=== PATIENT | female | born 1990 | race Caucasian/White ===

== ENCOUNTER 2025-01-03 09:58 | Inpatient (IN) ==
[2025-01-03 10:41] LABS: Hematocrit (blood only) 42.9 % (37.0-47.0); Hemoglobin 14.6 g/dL (12.0-16.0); Immature Granulocytes # (auto) 0.00 K/uL (0.01-0.20); Immature Granulocytes % (auto) 0.0 %; Mean Corpuscular Hemoglobin 31.1 pg (25.0-34.0); Mean Corpuscular Volume 91.5 fL (80.0-100.0); Platelet Count 227 K/uL (130-400); RDW Standard Deviation 41.5 fL (36.4-46.3); Red Blood Count 4.69 M/uL (4.20-5.40); White Blood Count 4.61 K/ul (4.8-10.8)
[2025-01-03 10:57] LABS: Alanine Aminotransferase 9.0 U/L (7-52); Albumin Globulin Ratio 1.8 (0.9-2); Albumin Level 4.9 gm/dl (3.4-5.0); Alkaline Phosphatase 52.0 U/L (34-104); Anion Gap 7.0 (3-11); Bilirubin,Total 0.7 mg/dl (0.2-1.0); Blood Urea Nitrogen 10.0 mg/dl (6-23); Calcium 9.5 mg/dl (8.6-10.3); Carbon Dioxide 28.0 mmol/L (21-32); Chloride 104.0 mmol/L (98-107); Creatinine Clr Calc Pharmacy 81.0 ml/min; Globulin 2.7 gm/dl (2.5-4.0); Glucose 89.0 mg/dl (70-99(Fasting)); Potassium 3.6 mmol/L (3.5-5.1); Sodium 139.0 mmol/L (136-145); Total Protein 7.6 gm/dl (6.0-8.3)
[2025-01-03 11:01] LABS: Acetaminophen < 3 ug/ml (10-30); Salicylate < 3.0 mg/dl (3.0-30)
[2025-01-03 11:12] LABS: Thyroid Stimulating Hormone 1.473 uIu/ml (0.300-4.500)
[2025-01-03 11:20] LABS: Appearance Urine Clear (Clear); Bacteria Urine Automated 1+ (None Seen); Cast Urine Automated 0-2 /lpf (0-2); Glucose Urine UA Negative (Negative); Pregnancy Test, Serum Negative (Negative); RBC Urine Automated 0-2 /hpf (0-2); WBC Urine Automated 0-5 /hpf (0-5)
[2025-01-03] MEDS: ONDANSETRON 4 MG OD TAB PO STA (11:34)
[2025-01-03 11:51] LABS: Amphetamines+Metham, Urine Neg (Neg); MDMA (Ecstacy), Urine Neg (Neg); Marijuana, Urine Neg (Neg)
--- NOTE | 2025-01-03 12:48 | Emergency Department Note ---
Impression & Plan Suicidal ideation, Depression ED Provider Note NAME: HEIDI PUENTE AGE: 34 SEX: F : 1990 ARRIVES VIA: Walk-In INFORMANT: Patient ED PROVIDER(S): Babatunde Mesa MD CHIEF COMPLAINT: Depression and suicidal ideation. PLAN: Disposition: Inpatient psychiatric treatment MEDICAL DECISION MAKING: The patient is a pleasant 34-year-old woman with past medical history of anxiety/depression who presents to the emergency department via walk-in for evaluation of worsening depression with associated suicidal ideation. Patient denies having a particular plan but felt numerous stressors piling on and did not wanted to get worse. Patient denies auditory hallucinations. She denies prior psychiatric admissions. She denies any recent illness. On my evaluation the patient is medically appearing but no acute distress, afebrile with stable vital signs. She exhibits a flat affect. She reports severe depression and suicidal ideation without plan. WBC 4.6 K, nonspecific. H/H and platelets within normal limits. Chemistry without metabolic acidosis. Electrolytes and LFTs unremarkable. TSH with normal limits. hCG negative. UA without convincing evidence of infection as 1+ bacteria is present with epithelial cells and no WBCs or nitrites. Patient denies urinary symptoms. Medical alcohol is undetectable. Urine drug screen was positive for benzodiazepines. Appreciate case management assistance/consultation who did complete mental health evaluation and patient is interested and willing to proceed with voluntary inpatient psychiatric treatment. Patient accepted to 3 S. under a 201. Triage Nursing notes reviewed and agree them. Prior/external medical records reviewed Vital Signs: reviewed Differential diagnosis: Mood disorder, infection, hypoglycemia, electrolyte abnormalities, cardiac sources, intracerebral event, toxicologic, trauma, neurologic, as well as other pathologies. ER treatment provided: See below. Laboratory studies: See below Imaging studies: See below Consultation(s): Case management HPI: Per MDM. ROS: See above HPI for pertinent positives & negatives. A total of 10 systems reviewed and were otherwise negative. VITALS:See Below PHYSICAL EXAMINATION: GENERAL: Awake, alert, melancholy-appearing, in no distress HENT: Normocephalic, atraumatic. Oropharynx unremarkable. EYES: Normal conjunctiva. Sclera non-icteric. NECK: Supple. No nuchal rigidity. FROM. No JVD. RESPIRATORY: Clear to auscultation. CARDIAC: Regular rate, normal rhythm. Extremities warm and well perfused. Pulses equal. ABDOMEN: Soft, non-distended. No tenderness to palpation. No rebound or guarding. No masses. MUSCULOSKELETAL: Chest examination reveals no tenderness. The back is symmetrical on inspection without obvious abnormality. There is no CVA tenderness to palpation. No joint edema. LOWER EXTREMITIES: Calves are equal size bilaterally and non-tender. No edema. No discoloration. NEURO: Normal sensorium. No sensory or motor deficits noted. SKIN: No rash or jaundice noted. PSYCH: Flat affect. Reports severe depression, suicidal ration without plan. Denies auditory hallucinations Babatunde Mesa MD Past Med/Surg History Problem List Depression (Acute) Suicidal ideation (Acute) S/P tubal ligation Medical History History of palpitations Follows with Dr. Mcgarry ([facility] Cardio) Anxiety and depression Surgical History Nausea and vomiting after administration of anesthetic agent S/P hardware removal rt ankle History of ankle surgery Right ankle bone wedge resection, w/screw placement History of hip surgery rt hip, screw placed through growth plate S/P correction of deviated nasal septum H/O wisdom tooth extraction H/O excision of dermoid cyst Family History Denies family history of Ovarian cancer Breast cancer Colorectal cancer Social History Smoking Status: Never smoker Second Hand Exposure: Yes (hx); Do You Dip or Chew Tobacco: No; Hx Alcohol Use: Yes Hx Substance Use: Yes Last Used Substance Other:: years ago Preferred Language: Malay Communication Ability: Effective 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 Beliefs That Will Affect Care: None marital status: Single Current Living Situation: Parent current occupational status: employed current occupation: [employer] How many Children do You have: 0 Feels Safe at Home: Yes Gender Identity: Female Assistive Devices: Glasses Allergies Allergies Allergy/AdvReac Type Severity Reaction Status Date / Time No Known Drug Allergies Allergy Verified 01/03/25 10:25 nickel AdvReac Skin Verified 01/03/25 10:25 itching ("with cheap earrings") Home Meds Home Medications Medication Instructions Recorded Confirmed escitalopram oxalate 20 mg tablet 20 mg PO HS 03/27/24 01/03/25 levocetirizine 5 mg tablet 5 mg PO HS 03/30/24 01/03/25 alprazolam 0.25 mg tablet (Xanax) 0.25 mg PO DIRECTED PRN Anxiety 01/03/25 01/03/25 Previous Rx's Medication Instructions Recorded valacyclovir 500 mg tablet 500 mg PO DAILY #30 tabs 10/01/24 (Valtrex) Results & Data (ED) Vital Signs Vital Signs - 24 hr 01/03/25 10:04 01/03/25 12:55 01/03/25 14:42 Temperature 37.0 C Temperature Source Temporal Artery Scan Pulse Rate 114 H Pulse Rate [Finger] 81 86 Pulse Rhythm [Finger] Regular Regular Pulse Strength [Finger] Normal Normal Respiratory Rate 18 20 20 Respiratory Effort / Characteristics Non-Labored Respiratory Depth Normal Normal Respiratory Pattern Regular Regular Blood Pressure 123/83 Blood Pressure [Right Radial Artery] 112/78 118/81 Blood Pressure Mean 96 Blood Pressure Mean [Right Radial Artery] 89 93 Blood Pressure Position [Right Radial Artery] Sitting Sitting Pulse Oximetry 97 99 99 Oxygen Delivery Method Room Air Room Air Room Air Sepsis Recent Fever Within 48 Hours No Sepsis New/Unexplained Change in Mental Status N/A Sepsis Action Taken by Nursing No Action Required Laboratory Data Attestation: I reviewed the patient's lab results. 01/03/25 10:24 01/03/25 10:24 Lab Results 01/03/25 01/03/25 Range/Units 10:24 13:32 WBC 4.61 L (4.8-10.8) K/ul RBC 4.69 (4.20-5.40) M/uL Hgb 14.6 (12.0-16.0) g/dL Hct 42.9 (37.0-47.0) % MCV 91.5 (80.0-100.0) fL MCH 31.1 (25.0-34.0) pg MCHC 34.0 (32.0-36.0) g/dL RDW Std Deviation 41.5 (36.4-46.3) fL RDW Coeff of Karson 12.6 (11.5-14.5) % Plt Count 227 (130-400) K/uL MPV 10.6 (9.4-12.4) fL Immature Gran % (Auto) 0.0 % Neut % (Auto) 56.8 % Lymph % (Auto) 32.8 % [place] % (Auto) 7.6 % Eos % (Auto) 1.7 % Baso % (Auto) 1.1 % Neut # (Auto) 2.62 (1.40-6.50) K/uL Lymph # (Auto) 1.51 (1.20-3.40) K/uL [place] # (Auto) 0.35 (0.11-0.59) K/uL Eos # (Auto) 0.08 (0.00-0.50) K/uL Baso # (Auto) 0.05 (0.00-0.20) K/uL Immature Gran # (Auto) 0.00 L (0.01-0.20) K/uL Sodium 139 (136-145) mmol/L Potassium 3.6 (3.5-5.1) mmol/L Chloride 104 (98-107) mmol/L Carbon Dioxide 28 (21-32) mmol/L Anion Gap 7 (3-11) BUN 10 (6-23) mg/dl Creatinine 0.71 (0.6-1.2) mg/dl Est Cr Clr Drug Dosing 81.0 ml/min eGFR 115.06 BUN/Creatinine Ratio 14.1 (10-20) Glucose 89 (70-99(Fasting)) mg/dl Calcium 9.5 (8.6-10.3) mg/dl Total Bilirubin 0.7 (0.2-1.0) mg/dl AST 15 (13-39) U/L ALT 9 (7-52) U/L Alkaline Phosphatase 52 (34-104) U/L Total Protein 7.6 (6.0-8.3) gm/dl Albumin 4.9 (3.4-5.0) gm/dl Globulin 2.7 (2.5-4.0) gm/dl Albumin/Globulin Ratio 1.8 (0.9-2) TSH 1.473 (0.300-4.500) uIu/ml HCG, Qual Negative (Negative) Urine Color Dark Yellow Urine Appearance Clear (Clear) Urine pH 6.5 (4.5-7.5) Ur Specific [place] 1.029 (1.000-1.030) Urine Protein Trace H (Negative) Urine Glucose (UA) Negative (Negative) Urine Ketones 1+ H (Negative) Urine Blood Negative (Negative) Urine Nitrite Negative (Negative) Urine Bilirubin Negative (Negative) Urine Urobilinogen Negative (Negative) Ur Leukocyte Esterase Negative (Negative) Urine WBC (Auto) 0-5 (0-5) /hpf Urine RBC (Auto) 0-2 (0-2) /hpf U Hyaline Cast (Auto) 0-2 (0-2) /lpf U Epithel Cells (Auto) 6-10 H (0-2) /hpf Urine Bacteria (Auto) 1+ H (None Seen) Urine Comment Salicylates < 3.0 L (3.0-30) mg/dl Urine Opiates Screen Neg (Neg) Ur Methadone, Qual Neg (Neg) Urine Fentanyl Screen Neg (Neg) Acetaminophen < 3 L (10-30) ug/ml Urine Barbiturates Neg (Neg) Ur Phencyclidine (PCP) Neg (Neg) U Amphetamin/Meth Scrn Neg (Neg) MDMA (Ecstasy) Screen Neg (Neg) U Benzodiazepines Scrn Pos H (Neg) Ur Cocaine Metabolite Neg (Neg) U Marijuana (THC) Screen Neg (Neg) Ethyl Alcohol mg/dL < 10.0 (<10.0) mg/dl SARS-CoV-2, RNA, NAAT NEGATIVE (NEGATIVE) Administered Medications Alprazolam (Alprazolam 0.25 Mg Tablet) 0.25 mg PO DAILY PRN PRN Reason: Anxiety Stop: 02/02/25 16:06 Last Admin: 01/03/25 22:16 Dose: 0.25 mg Documented By: bep Discontinued Medications Ondansetron HCl (Ondansetron 4 Mg Od Tab) 4 mg PO NOW STA Stop: 01/03/25 11:31 Last Admin: 01/03/25 11:34 Dose: 4 mg Documented By: ML Discharge Plan Visit Data Chief Complaint: Mental Health Evaluation Stated Complaint: SUICIDAL THOUGHTS ED Provider: Babatunde Mesa Discharge Problem: Suicidal ideation, Depression Patient Disposition: Admitted As Inpatient Condition: Fair Discharge Instructions Interventions: ED Discharge Assessment Last Done: 01/03/25 15:07 Discharge Problem: Depression Qualifiers: Depression Type: unspecified Qualified Code(s): F32.A - Depression, unspecified
[2025-01-03] MEDS ORDERED: MAGNESIUM HYDROXIDE SUSP 30 ML UDC PO PRN (14:46)
[2025-01-03] MEDS ORDERED: SODIUM CHLORIDE 0.65% NA SOLN 45 ML (OCEAN) PRN (14:46)
[2025-01-03] MEDS ORDERED: ALUMINUM/MAGNESIUM SUSP 30 ML UDC PO PRN (14:46)
[2025-01-03] MEDS ORDERED: BISMUTH SUBSALICYLATE 262 MG CHEW PO PRN (14:46)
[2025-01-03] MEDS ORDERED: ACETAMINOPHEN 325 MG TAB PO PRN (14:46)
[2025-01-03 16:06] VITALS: O2SAT 98
[2025-01-04 07:43] LABS: Iron 79.0 mcg/dl (35-150); Transferrin 283.0 mg/dl (200-360)
[2025-01-04 08:02] LABS: Ferritin 16.7 ng/ml (8-388)
[2025-01-04 08:14] LABS: Folate (Folic Acid),Ser orPlas 19.8 ng/ml (>5.38)
[2025-01-04 08:15] LABS: Vitamin B12 447.0 pg/ml (180-914)
[2025-01-04] MEDS: ESCITALOPRAM OXALATE 20 MG TAB PO SCH (08:18)
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
[2025-01-04] MEDS: ONDANSETRON 4 MG OD TAB PO PRN (10:00)
[2025-01-04] MEDS: LITHIUM CARBONATE 300 MG TAB PO SCH (22:19)
--- NOTE | 2025-01-05 10:15 | Psychiatric Progress Note ---
Date of Service January 05, 2025 Impression / Recommendations Impression Patient presents with symptoms of depression and anxiety in the context of recent mood deterioration and increased life stressors. She describes a long history of mood fluctuations, impulsivity, and racing thoughts. Patient has a brother with a diagnosis of bipolar disorder. In the past her impulsivity had been attributed to ADHD. She also has history of intrusive obsessive thoughts but no compulsions or ritualistic behaviors. She denied a history of eating disorders. She is in good physical condition and general health is stable. Patient agreed to explore more in-depth her symptoms in order to clarify the diagnosis. There is high suspicion of bipolar spectrum disorder. Patient has been on Lexapro for many years at the maximum dose and is open to medication changes. Tolerated lithium plus Lexapro well. Further medication adjustments will be conducted tomorrow. Overall, I spent a total of 35 minutes with this case, including review of chart, direct evaluation of the patient,counseling the patient,coordination with nursing,interdisciplinary team meeting,risk assessment, interpretation of self- assessment tools, and documentation. (1) Suicidal ideation: Passive suicidal ideation on admission. Denies suicidal ideation at the time of this evaluation, however will continue suicide precautions due to severe depression and mood instability. (2) Depression: Plan 01/05/25 Add magnesium 400 mg p.o. nightly for insomnia Continue lithium 150 mg p.o. nightly. Will attempt an increase tomorrow. Continue participation in unit programming continue suicide precautions 01/04/25: The patient was admitted to the [facility] ([facility]) on q15 min checks (behavioral with suicide precautions) for safety. The patient will participate in group, recreational, and milieu therapies and will be offered additional individual and family sessions as clinically appropriate. Patient to complete PHQ-9, PREMA-7, Audit, MDQ, and ASRS. -Will discuss medication options after we obtain results of the self-assessment. In the meantime patient will continue Lexapro. -Zofran has been ordered as needed for nausea -EKG ordered For medication monitoring due to increased risk of QT elevation with a combination of Zofran and Lexapro Suicide Risk Level Suicide Risk Level: Moderate (q15 min suicide checks) Risk Factors Assessment Do You Have Access To A Gun?: Yes Protective Factors Assessment Employed: Yes Interval History Identifying Information HEIDI PUENTE is a 34-year-old F who currently lives with her parents, has a history of depression and anxiety, and was admitted on 01/03/25 14:46 on a 201 voluntary due to worsening of anxiety and depression with suicidal ideation. Chief Complaint "I took the medication, nothing bad. Just did not sleep well. I do not think that was the medication." Review of Systems Sleep Information Total Hours of Sleep: 8 Meal Information Percent Meal Consumed - Breakfast: 75 Percent Meal Consumed - Lunch: 90 Percent Meal Consumed - Dinner: 80 Subjective Subjective Patient was seen & assessed and interval progress reviewed with nursing and social work. According to staff patient complained of difficulty sleeping due to restless legs. This morning she was out of her room early showered, and rated her mood at 5 out of 10. Patient told staff that she was feeling "focused" she was observed crying on the phone does not clear who she was speaking with. Patient denied suicidal ideation. Nausea has persisted. Patient evaluated in the group room by herself. She was writing some ideas to work through her stressors with the therapist. Patient denied side effects from initial dose of lithium and is agreeable to continue the medication. She had agreed to adding magnesium to help with sleep. We discussed continuing lithium at the current dose for a couple more days before it is increased. On exam there is no evidence of involuntary movements. Patient expressed interest in learning more about bipolar disorder. Physical Exam Mental Examination Appearance: Well Groomed Eye Contact: Maintains Eye Contact Motor Behavior: Unremarkable Speech: Soft Mood: Depressed (Not tearful today) and Anxious Affect: Anxious and Sad Thought Process: Intact Insight: Fair Judgement: Fair Vital Signs (Past 24 Hours) Last Vital Signs Temp 36.7 C 01/05/25 06:00 Pulse 61 01/05/25 06:13 Resp 16 01/05/25 06:00 BP 113/74 01/05/25 06:13 Pulse Ox 98 01/03/25 15:45 O2 Del Method Room Air 01/03/25 15:45 Results & Data ([facility] [[email or web address] Current Inpatient Medications Current Inpatient Medications: Current Inpatient Medications Acetaminophen (Acetaminophen 325 Mg Tab) 650 mg PO Q4H PRN PRN Reason: Headache or Minor Fever Stop: 02/02/25 14:45 Al Hydrox/Mg Hydrox/Simethicone (Aluminum/Magnesium Susp 30 Ml Udc) 30 ml PO Q4H PRN PRN Reason: GI Upset Stop: 02/02/25 14:45 Alprazolam (Alprazolam 0.25 Mg Tablet) 0.25 mg PO DAILY PRN PRN Reason: Anxiety Stop: 02/02/25 16:06 Last Admin: 01/03/25 22:16 Dose: 0.25 mg Bismuth Subsalicylate (Bismuth Subsalicylate 262 Mg Chew) 2 tab PO Q30M PRN PRN Reason: Loose Stool/Diarrhea Stop: 02/02/25 14:45 Escitalopram Oxalate (Escitalopram Oxalate 20 Mg Tab) 20 mg PO QAM PATTI Stop: 02/03/25 08:59 Last Admin: 01/05/25 08:33 Dose: 20 mg Hydroxyzine HCl (Hydroxyzine Hcl 25 Mg Tab) 50 mg PO HSZ PRN PRN Reason: Insomnia Stop: 02/02/25 14:45 Last Admin: 01/05/25 00:05 Dose: 50 mg Hydroxyzine HCl (Hydroxyzine Hcl 25 Mg Tab) 25 mg PO Q4H PRN PRN Reason: Anxiety Stop: 02/02/25 14:45 [place] Carbonate ([place] Carbonate 300 Mg Tab) 150 mg PO HS@2200 PATTI Stop: 02/03/25 21:59 Last Admin: 01/04/25 22:19 Dose: 150 mg Magnesium Hydroxide (Magnesium Hydroxide Susp 30 Ml Udc) 30 ml PO DAILY PRN PRN Reason: Constipation Stop: 02/02/25 14:45 Ondansetron HCl (Ondansetron 4 Mg Od Tab) 4 mg PO Q8H PRN PRN Reason: Nausea And Vomiting Stop: 02/03/25 09:13 Last Admin: 01/04/25 10:00 Dose: 4 mg Sodium Chloride (Sodium Chloride 0.65% Na Soln 45 Ml ([place])) 1 - 2 sprays NA PRN PRN PRN Reason: Nasal Dryness/Congestion Stop: 02/02/25 14:45 Mental Health & Subst Abuse Tx Therapist Name of Therapist: [facility]. Cornice Upholsterer Name of Cornice Upholsterer: n/a Post Discharge Appointments Primary Care Physician Name Of Family Doctor/PCP: Debra Gonzalez (2) Depression Depression Type: unspecified Qualified Code(s): F32.A - Depression, unspecified
[2025-01-05] MEDS: MAGNESIUM OXIDE 400 MG TAB PO SCH (21:11)
--- NOTE | 2025-01-06 09:55 | Psychiatric Progress Note ---
Date of Service January 06, 2025 Impression / Recommendations Impression Patient presents with symptoms of depression and anxiety in the context of recent mood deterioration and increased life stressors. She describes a long history of mood fluctuations, impulsivity, and racing thoughts. Patient has a brother with a diagnosis of bipolar disorder. In the past her impulsivity had been attributed to ADHD. She also has history of intrusive obsessive thoughts but no compulsions or ritualistic behaviors. She denied a history of eating disorders. She is in good physical condition and general health is stable. Patient agreed to explore more in-depth her symptoms in order to clarify the diagnosis. There is high suspicion of bipolar spectrum disorder. Patient has been on Lexapro for many years at the maximum dose and is open to medication changes. We discussed what to expect with a higher dose of lithium and also reiterated side effects and medications contraindicated when using lithium (including NSAIDs, lisinopril,hydrochlorothiazide). We discussed need to maintain good hydration. And to monitor for tremors and or side effects. Patient also educated about the need to get labs including monitoring kidney, thyroid, and blood lithium level FMLA document signed. Overall, I spent a total of 35 minutes with this case, including review of chart, direct evaluation of the patient,counseling the patient,coordination with nursing,interdisciplinary team meeting,risk assessment, interpretation of self- assessment tools, and documentation. (1) Suicidal ideation: (2) Depression: Plan 01/06/25 Increase [place] to 300mg po qhs lower Lexapro to 15 mg po daily Continue rest of medications without changes. Will discontinue PRN hydroxyzine if able to sleep with higher lithium dose FMLA documents signed 01/05/25 Add magnesium 400 mg p.o. nightly for insomnia Continue lithium 150 mg p.o. nightly. Will attempt an increase tomorrow. Continue participation in unit programming continue suicide precautions 01/04/25: The patient was admitted to the [facility] ([facility] unit) on q15 min checks (behavioral with suicide precautions) for safety. The patient will participate in group, recreational, and milieu therapies and will be offered additional individual and family sessions as clinically appropriate. Patient to complete PHQ-9, PREMA-7, Audit, MDQ, and ASRS. -Will discuss medication options after we obtain results of the self-assessment. In the meantime patient will continue Lexapro. -Zofran has been ordered as needed for nausea -EKG ordered For medication monitoring due to increased risk of QT elevation with a combination of Zofran and Lexapro Suicide Risk Level Suicide Risk Level: Moderate (q15 min suicide checks) Risk Factors Assessment Do You Have Access To A Gun?: Yes Protective Factors Assessment Employed: Yes Interval History Identifying Information HEIDI PUENTE is a 34-year-old F who currently lives with her parents, has a history of depression and anxiety, and was admitted on 01/03/25 14:46 on a 201 voluntary due to worsening of anxiety and depression with suicidal ideation. Chief Complaint "I did sleep well. I feel the speed of my thoguhts is not as bad but I woke up feeling withdrawn and nubia bumped.". Review of Systems Sleep Information Total Hours of Sleep: 6 Meal Information Percent Meal Consumed - Breakfast: 50 Percent Meal Consumed - Lunch: 95 Percent Meal Consumed - Dinner: 95 Subjective Subjective Patient was seen & assessed and interval progress reviewed with treatment team.. Support meeting is scheduled for tomorrow. She had a positive day yesterday. Patient reported no side effects after starting lithium 150. She indicated that her thoughts feel clear. However mood is not improved, in fact she feels "bumped" and expressed feeling surprised since yesterday her mood was better.Patient agreed to increase the dose of lithium. We discussed lowering Lexapro slightly due to concerns about serotonin syndrome and drug-drug interactions. Patient agreed with this plan. Patient indicated that she was not able to sleep well despite receiving the magnesium but agreed to continue the supplement. According to staff patient has difficulty sleeping due to restless legs Physical Exam Mental Examination Appearance: Well Groomed Eye Contact: Maintains Eye Contact Motor Behavior: Unremarkable Speech: Soft Mood: Depressed Affect: Sad Thought Process: Intact Insight: Good Judgement: Good Psychiatric Orientation: alert and oriented x 3 Apperance: appropriately dressed Eye Contact: good eye contact Motor Behavior: steady gait and station Thought Process: goal directed thought process Thought Content: reality based without delusions Suicidal Thoughts: denies suicidal thoughts Homicidal Thoughts: denies homicidal thoughts Hallucinations: no auditory hallucinations Cognition: recent memory grossly intact and remote memory grossly intact Estimated Intelligence: average estimated intelligence Insight: good insight Judgment: good judgement Vital Signs (Past 24 Hours) Last Vital Signs Temp 36.7 C 01/06/25 06:45 Pulse 73 01/06/25 06:45 Resp 20 01/06/25 06:45 BP 102/64 01/06/25 06:45 Pulse Ox 98 01/06/25 06:45 O2 Del Method Room Air 01/06/25 06:45 Results & Data ([facility]) Current Inpatient Medications Current Inpatient Medications: Current Inpatient Medications Acetaminophen (Acetaminophen 325 Mg Tab) 650 mg PO Q4H PRN PRN Reason: Headache or Minor Fever Stop: 02/02/25 14:45 Al Hydrox/Mg Hydrox/Simethicone (Aluminum/Magnesium Susp 30 Ml Udc) 30 ml PO Q4H PRN PRN Reason: GI Upset Stop: 02/02/25 14:45 Alprazolam (Alprazolam 0.25 Mg Tablet) 0.25 mg PO DAILY PRN PRN Reason: Anxiety Stop: 02/02/25 16:06 Last Admin: 01/03/25 22:16 Dose: 0.25 mg Bismuth Subsalicylate (Bismuth Subsalicylate 262 Mg Chew) 2 tab PO Q30M PRN PRN Reason: Loose Stool/Diarrhea Stop: 02/02/25 14:45 Escitalopram Oxalate (Escitalopram Oxalate 20 Mg Tab) 20 mg PO QAM PATTI Stop: 02/03/25 08:59 Last Admin: 01/06/25 08:40 Dose: 20 mg Hydroxyzine HCl (Hydroxyzine Hcl 25 Mg Tab) 50 mg PO HSZ PRN PRN Reason: Insomnia Stop: 02/02/25 14:45 Last Admin: 01/05/25 23:47 Dose: 50 mg Hydroxyzine HCl (Hydroxyzine Hcl 25 Mg Tab) 25 mg PO Q4H PRN PRN Reason: Anxiety Stop: 02/02/25 14:45 [place] Carbonate ([place] Carbonate 300 Mg Tab) 150 mg PO HS@2200 PATTI Stop: 02/03/25 21:59 Last Admin: 01/05/25 21:11 Dose: 150 mg Magnesium Hydroxide (Magnesium Hydroxide Susp 30 Ml Udc) 30 ml PO DAILY PRN PRN Reason: Constipation Stop: 02/02/25 14:45 Magnesium Oxide (Magnesium Oxide 400 Mg Tab) 400 mg PO HS PATTI Stop: 02/04/25 21:59 Last Admin: 01/05/25 21:11 Dose: 400 mg Ondansetron HCl (Ondansetron 4 Mg Od Tab) 4 mg PO Q8H PRN PRN Reason: Nausea And Vomiting Stop: 02/03/25 09:13 Last Admin: 01/04/25 10:00 Dose: 4 mg Sodium Chloride (Sodium Chloride 0.65% Na Soln 45 Ml ([place])) 1 - 2 sprays NA PRN PRN PRN Reason: Nasal Dryness/Congestion Stop: 02/02/25 14:45 Mental Health & Subst Abuse Tx Psychiatrist Name of Psychiatrist: Debra Gonzalez - [facility] Psychiatrist's Date Of Appointment With Psychiatric Provider: 02/17/25 Time of Appointment with Psychiatrist: 8:20 am Therapist Name of Therapist: [facility] Therapist's Date of Therapist Appointment: 01/19/25 Time of Therapist Appointment: 6:00 PM Employee Development Manager Name of Employee Development Manager: n/a Post Discharge Appointments Primary Care Physician Name Of Family Doctor/PCP: Debra Gonzalez (2) Depression Depression Type: unspecified Qualified Code(s): F32.A - Depression, unspecified
[2025-01-06] MEDS: LITHIUM CARBONATE 300 MG TAB PO SCH (21:45)
[2025-01-06] MEDS: ESCITALOPRAM OXALATE 10 MG TAB PO SCH (21:46)
[2025-01-07 06:25] VITALS: RESP 16
--- NOTE | 2025-01-07 09:48 | Psychiatric Progress Note ---
Date of Service January 07, 2025 Impression / Recommendations Impression Patient presents with symptoms of depression and anxiety in the context of recent mood deterioration and increased life stressors. She describes a long history of mood fluctuations, impulsivity, and racing thoughts. Patient has a brother with a diagnosis of bipolar disorder. In the past her impulsivity had been attributed to ADHD. She also has history of intrusive obsessive thoughts but no compulsions or ritualistic behaviors. She denied a history of eating disorders. She is in good physical condition and general health is stable. Patient agreed to explore more in-depth her symptoms in order to clarify the diagnosis. There is high suspicion of bipolar spectrum disorder. Patient has been on Lexapro for many years at the maximum dose and is open to medication changes. Patient exhibited very good response to current medication. She is denying suicidal or homicidal ideation plan or intent. No side effects from lithium thus far. There is no evidence of involuntary movements. Family meeting is scheduled for today. Preparing patient for discharge tomorrow. (1) Suicidal ideation: (2) Depression: (3) Bipolar 2 disorder: Plan 01/07/25 Continue lithium 300 mg p.o. nightly, lithium level in 10 days. Continue Lexapro 15 mg p.o. daily May continue home medication alprazolam 0.25 mg as needed for severe anxiety 01/06/25 Increase [place] to 300mg po qhs lower Lexapro to 15 mg po daily Continue rest of medications without changes. Will discontinue PRN hydroxyzine if able to sleep with higher lithium dose FMLA documents signed 01/05/25 Add magnesium 400 mg p.o. nightly for insomnia Continue lithium 150 mg p.o. nightly. Will attempt an increase tomorrow. Continue participation in unit programming continue suicide precautions 01/04/25: The patient was admitted to the [facility] ([facility] unit) on q15 min checks (behavioral with suicide precautions) for safety. The patient will participate in group, recreational, and milieu therapies and will be offered additional individual and family sessions as clinically appropriate. Patient to complete PHQ-9, PREMA-7, Audit, MDQ, and ASRS. -Will discuss medication options after we obtain results of the self-assessment. In the meantime patient will continue Lexapro. -Zofran has been ordered as needed for nausea -EKG ordered For medication monitoring due to increased risk of QT elevation with a combination of Zofran and Lexapro Suicide Risk Level Suicide Risk Level: Moderate (q15 min suicide checks) Risk Factors Assessment Do You Have Access To A Gun?: Yes Protective Factors Assessment Employed: Yes Interval History Identifying Information HEIDI PUENTE is a 34-year-old F who currently lives with her parents, has a history of depression and anxiety, and was admitted on 01/03/25 14:46 on a 201 voluntary due to worsening of anxiety and depression with suicidal ideation. Chief Complaint "I was a anxious because I think that work is overuse but I was a little nervous and interested to see how I would do on the 300 with with lithium and the fact that you know are not shaky I I really do not do anything other than what better but I really I do feel that more even keeled" Review of Systems Sleep Information Total Hours of Sleep: 8 Meal Information Percent Meal Consumed - Breakfast: 50 Percent Meal Consumed - Lunch: 90 Percent Meal Consumed - Dinner: 100 Subjective Subjective Patient was seen & assessed and interval progress reviewed with nursing and social work. According to staff patient has been out of her room. She has difficulty sleeping require Vistaril last night and also as needed Xanax at 10 PM. Complained of restless legs. Patient evaluated after receiving slightly higher dose of lithium last night. She reported tolerating the increased dose well. Patient stated that she feels the medication is helping a lot and she is feeling healthier, not anxious, and energized to work on psychological framework improvement like improving her self-esteem, setting boundaries, working on her goals. Patient stated, "I wan to share this with you: this morning like right around the time that my parents really be getting here I like it was an interesting sensation, I felt like my brain and my body really we should like probably had a panic attack. It was just a weird experience because I was not feeling that panic but I still felt like kind of some of the same of my anxiety like in a situation like this this is what would have happened, right? it and it is like you know those neuro pathways are so strong but I was not having the physical symptoms of being anxious so I just kind of started doing some laps and doing some like square breathing and I never you know reached the point of overwhelming. I am like really really grateful okay I am really happy." We reviewed side effects of lithium again and need for hydration and concerns about risk for electrolyte imbalance including low sodium in certain situations. Patient alerted about the need for monitoring with provider and getting regular labs. Patient asked appropriate questions about discharge planning. She explained that she drove herself to the ER on Saturday, her car is here. She asked if she will be allowed to drive herself after discharge. Physical Exam Psychiatric Orientation: alert and oriented x 3 Apperance: appropriately dressed Eye Contact: good eye contact Motor Behavior: steady gait and station Thought Process: goal directed thought process Thought Content: reality based without delusions Suicidal Thoughts: denies suicidal thoughts Homicidal Thoughts: denies homicidal thoughts Hallucinations: no auditory hallucinations Cognition: recent memory grossly intact and remote memory grossly intact Estimated Intelligence: average estimated intelligence Insight: good insight Judgment: good judgement Vital Signs (Past 24 Hours) Last Vital Signs Temp 36.8 C 01/07/25 06:24 Pulse 72 01/07/25 06:24 Resp 16 01/07/25 06:24 BP 115/80 01/07/25 06:24 Pulse Ox 98 01/06/25 06:45 O2 Del Method Room Air 01/06/25 06:45 Musculoskeletal No tremors Results & Data ([facility]) Current Inpatient Medications Current Inpatient Medications: Current Inpatient Medications Acetaminophen (Acetaminophen 325 Mg Tab) 650 mg PO Q4H PRN PRN Reason: Headache or Minor Fever Stop: 02/02/25 14:45 Al Hydrox/Mg Hydrox/Simethicone (Aluminum/Magnesium Susp 30 Ml Udc) 30 ml PO Q4H PRN PRN Reason: GI Upset Stop: 02/02/25 14:45 Alprazolam (Alprazolam 0.25 Mg Tablet) 0.25 mg PO DAILY PRN PRN Reason: Anxiety Stop: 02/02/25 16:06 Last Admin: 01/03/25 22:16 Dose: 0.25 mg Bismuth Subsalicylate (Bismuth Subsalicylate 262 Mg Chew) 2 tab PO Q30M PRN PRN Reason: Loose Stool/Diarrhea Stop: 02/02/25 14:45 Escitalopram Oxalate (Escitalopram Oxalate 10 Mg Tab) 15 mg PO QAM PATTI Stop: 02/06/25 08:59 Last Admin: 01/06/25 21:46 Dose: 15 mg Hydroxyzine HCl (Hydroxyzine Hcl 25 Mg Tab) 50 mg PO HSZ PRN PRN Reason: Insomnia Stop: 02/02/25 14:45 Last Admin: 01/06/25 23:06 Dose: 50 mg Hydroxyzine HCl (Hydroxyzine Hcl 25 Mg Tab) 25 mg PO Q4H PRN PRN Reason: Anxiety Stop: 02/02/25 14:45 [place] Carbonate ([place] Carbonate 300 Mg Tab) 300 mg PO HS@2200 PATTI Stop: 02/05/25 21:59 Last Admin: 01/06/25 21:45 Dose: 300 mg Magnesium Hydroxide (Magnesium Hydroxide Susp 30 Ml Udc) 30 ml PO DAILY PRN PRN Reason: Constipation Stop: 02/02/25 14:45 Magnesium Oxide (Magnesium Oxide 400 Mg Tab) 400 mg PO HS PATTI Stop: 02/04/25 21:59 Last Admin: 01/06/25 21:45 Dose: 400 mg Ondansetron HCl (Ondansetron 4 Mg Od Tab) 4 mg PO Q8H PRN PRN Reason: Nausea And Vomiting Stop: 02/03/25 09:13 Last Admin: 01/04/25 10:00 Dose: 4 mg Sodium Chloride (Sodium Chloride 0.65% Na Soln 45 Ml ([place])) 1 - 2 sprays NA PRN PRN PRN Reason: Nasal Dryness/Congestion Stop: 02/02/25 14:45 Mental Health & Subst Abuse Tx Psychiatrist Name of Psychiatrist: Debra Mcknight [facility] Psychiatrist's Date Of Appointment With Psychiatric Provider: 02/17/25 Time of Appointment with Psychiatrist: 8:20 am Psychiatric Appointment Comment: [place] draw needed Therapist Name of Therapist: [facility] Therapist's Date of Therapist Appointment: 01/19/25 Time of Therapist Appointment: 6:00 PM Die Cutter Name of Die Cutter: n/a Post Discharge Appointments Primary Care Physician Name Of Family Doctor/PCP: Debra Gonzalez (2) Depression Depression Type: unspecified Qualified Code(s): F32.A - Depression, unspecified
--- NOTE | 2025-01-07 14:36 | Discharge Summary ---
Date of Service January 08, 2025 History of Present Illness According to emergency department evaluation note dated 01/03/2025, " . . .34-year-old woman with past medical history of anxiety/depression who presents to the emergency department via walk-in for evaluation of worsening depression with associated suicidal ideation. Patient denies having a particular plan but felt numerous stressors piling on and did not wanted to get worse. Patient denies auditory hallucinations. . ." Patient reported that she started having panic attacks at a very early age. she remembers the attacks initiated after 1 particular uncomfortable episode when she went for dinner with her grandparents and drank a milkshake and became nauseous and later vomited. After that day, every time she went to a restaurant she would reexperience the whole episode and become nauseous and or vomit even before she ate. Patient reported that this impacted her family and she started to feel "like a burden" or an inconvenience which increase her anxiety overall. Patient has had depression and anxiety symptoms on and off since then. She reported that in the last 2 weeks her depression symptoms have worsened causing difficulty functioning in her daily life, difficulty eating, and finally leading to suicidal thoughts yesterday. Patient explained that the suicidal thoughts had been present intermittently for the last 2 weeks and the thoughts intensified Saturday night. While exploring historical symptoms, patient reported a long history of impulsivity that has impacted her work. 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 Patient indicated that she frequently has intrusive thoughts and racing thoughts that impact her ability to concentrate at work. She has been unable to finish tasks and indecisive about how to prioritize competing activities. Patient reported a history of having nightmares related related to a theme of active shooter situation even though she has never been involved in such situations. She reported intrusive thoughts about people in her support system dying and explained that this was not a desire to hurt them but at concern that if they there would be nothing that could prevent her from progressing from suicidal ideation to an actual plan. Patient denied History of clear yoselin; however she reported episodes of poor impulse control increased goal-directed activities, elevated self-esteem, racing thoughts. She also described mood changes related to her menstrual cycle and to seasonal changes. When asked about psychotic symptoms, patient reported she does not hear voices but sometimes feels she receives messages from the universe. She explains this as part of her spirituality. Patient feels physically well except for nausea that developed this morning after taking Lexapro she explained that she typically takes Lexapro at night she was provided a dose of Zofran which was helpful. *Today patient exhibits good grooming and hygiene, describes her mood mood "good and excited" with appropriate affect. She is future oriented. Continues to tolerate the medication changes well. Physical Exam Psychiatric Orientation: alert and oriented x 3 Apperance: appropriately dressed Eye Contact: good eye contact Motor Behavior: steady gait and station Thought Process: goal directed thought process Thought Content: reality based without delusions Suicidal Thoughts: denies suicidal thoughts Homicidal Thoughts: denies homicidal thoughts Hallucinations: no auditory hallucinations Cognition: recent memory grossly intact and remote memory grossly intact Estimated Intelligence: average estimated intelligence Insight: good insight Judgment: good judgement Vital Signs (Past 24 Hours) Last Vital Signs Temp 36.8 C 01/07/25 06:24 Pulse 72 01/07/25 06:24 Resp 16 01/07/25 06:24 BP 115/80 01/07/25 06:24 Pulse Ox 98 01/06/25 06:45 O2 Del Method Room Air 01/06/25 06:45 No changes from admission. Principal Diagnosis Bipolar II Disorder most recent epi depressed Generalized anxiety Disorder Psychiatric Data See daily stay summary. In short, safety was maintained and the patient was cooperative with care. Medication changes included decreasing Lexapro and adding lithium and they tolerated this well. A family session was held and safety plan was completed prior to discharge. Risks/benefits/alternatives reviewed lithium for mood stabilization. Discussion included but was not limited to risks of toxicity in overdose and need for ongoing blood monitoring (levels, kidney function, and thyroid). The patient was made aware to avoid regular use of NSAIDs as can increase levels and that lithium may need to be held during GI or other illnesses that result in dehyrdation. The patient is not currently and agrees to use reliable control as may be associated with heart defects (Ebstein's anomaly). Day of Discharge Assessment Today the patient voices readiness for discharge. They note improvement in mood and deny thoughts to harm self or others. Thoughts remain organized and they are improved from admission. There is no evidence of psychosis. They agree to take mediations as prescribed and keep follow-up appointments. They are stable for discharge to outpatient level of care. Transition of Care Transition Of Care Record: was reviewed with the patient Advance Directives Advance Directives Information Provided: Yes Advance Directives: No Living Will: No Power of Language Arts Teacher: No Suicide Risk Level Suicide Risk Level: Low (q15 min observation checks) Suicide Risk Level Comments: Suitable for discharge Risk Factors Assessment Do You Have Access To A Gun?: Yes Protective Factors Assessment Employed: Yes Tobacco Cessation at Discharge Tobacco Cessation Medication Prescribed at Discharge: Not Applicable/Non-Smoker Total Time Total Time Spent: Greater Than 30 Minutes Discharge Data Procedures Performed Pending lithium level. Educated about the need for labs. Prescription given. Lab Results 01/03/25 01/03/25 10:24 13:32 WBC 4.61 L RBC 4.69 Hgb 14.6 Hct 42.9 MCV 91.5 MCH 31.1 MCHC 34.0 RDW Std Deviation 41.5 RDW Coeff of [place] 12.6 Plt Count 227 MPV 10.6 Immature Gran % (Auto) 0.0 Neut % (Auto) 56.8 Lymph % (Auto) 32.8 [place] % (Auto) 7.6 Eos % (Auto) 1.7 Baso % (Auto) 1.1 Neut # (Auto) 2.62 Lymph # (Auto) 1.51 [place] # (Auto) 0.35 Eos # (Auto) 0.08 Baso # (Auto) 0.05 Immature Gran # (Auto) 0.00 L Sodium 139 Potassium 3.6 Chloride 104 Carbon Dioxide 28 Anion Gap 7 BUN 10 Creatinine 0.71 Est Cr Clr Drug Dosing 81.0 eGFR 115.06 BUN/Creatinine Ratio 14.1 Glucose 89 Calcium 9.5 Iron 79 Transferrin 283 Ferritin 16.7 Total Bilirubin 0.7 AST 15 ALT 9 Alkaline Phosphatase 52 Total Protein 7.6 Albumin 4.9 Globulin 2.7 Albumin/Globulin Ratio 1.8 Vitamin B12 447 Folate 19.80 TSH 1.473 HCG, Qual Negative Urine Color Dark Yellow Urine Appearance Clear Urine pH 6.5 Ur Specific [place] 1.029 Urine Protein Trace H Urine Glucose (UA) Negative Urine Ketones 1+ H Urine Blood Negative Urine Nitrite Negative Urine Bilirubin Negative Urine Urobilinogen Negative Ur Leukocyte Esterase Negative Urine WBC (Auto) 0-5 Urine RBC (Auto) 0-2 U Hyaline Cast (Auto) 0-2 U Epithel Cells (Auto) 6-10 H Urine Bacteria (Auto) 1+ H Urine Comment Salicylates < 3.0 L Urine Opiates Screen Neg Ur Methadone, Qual Neg Urine Fentanyl Screen Neg Acetaminophen < 3 L Urine Barbiturates Neg Ur Phencyclidine (PCP) Neg U Amphetamin/Meth Scrn Neg MDMA (Ecstasy) Screen Neg U Benzodiazepines Scrn Pos H Ur Cocaine Metabolite Neg U Marijuana (THC) Screen Neg Ethyl Alcohol mg/dL < 10.0 SARS-CoV-2, RNA, NAAT NEGATIVE Hospital Course (1) Suicidal ideation: (2) Depression: (3) Bipolar 2 disorder: Plan 01/08/25 Discharge today 01/07/25 Continue lithium 300 mg p.o. nightly, lithium level in 10 days. Continue Lexapro 15 mg p.o. daily May continue home medication alprazolam 0.25 mg as needed for severe anxiety 01/06/25 Increase [place] to 300mg po qhs lower Lexapro to 15 mg po daily Continue rest of medications without changes. Will discontinue PRN hydroxyzine if able to sleep with higher lithium dose FMLA documents signed 01/05/25 Add magnesium 400 mg p.o. nightly for insomnia Continue lithium 150 mg p.o. nightly. Will attempt an increase tomorrow. Continue participation in unit programming continue suicide precautions 01/04/25: The patient was admitted to the [facility] ([facility] mental [facility] unit) on q15 min checks (behavioral with suicide precautions) for safety. The patient will participate in group, recreational, and milieu therapies and will be offered additional individual and family sessions as clinically appropriate. Patient to complete PHQ-9, PREMA-7, Audit, MDQ, and ASRS. -Will discuss medication options after we obtain results of the self-assessment. In the meantime patient will continue Lexapro. -Zofran has been ordered as needed for nausea -EKG ordered For medication monitoring due to increased risk of QT elevation with a combination of Zofran and Lexapro Mental Health & Subst Abuse Tx Psychiatrist Name of Psychiatrist: Debra Gonzalez - [facility] Psychiatrist's Date Of Appointment With Psychiatric Provider: 02/17/25 Time of Appointment with Psychiatrist: 8:20 am Psychiatric Appointment Comment: [place] draw needed Therapist Name of Therapist: Latisha [facility] Therapist's Date of Therapist Appointment: 01/19/25 Time of Therapist Appointment: 6:00 PM [facility] [facility]ens Name of Bl[employer] And Cutter Contact Lens: n/a Post Discharge Appointments Primary Care Physician Name Of Family Doctor/PCP: Debra Gonzalez Smoking Cessation Counseling Tobacco Cessation Medication Prescribed at Discharge: Not Applicable/Non-Smoker Discharge Plan Discharge Items Patient Disposition: Home - Self-Care Reason For Visit: UNSPECIFIED DEPRESS DISORDER Discharge Diagnosis: Bipolar II, depressed generalized anxiety disorder Condition on Discharge: Good Activity: Resume your previous activity Non-emergency contact: Primary Care Provider, Psychiatrist and Therapist Call non-emergency contact if: you have any medication questions and your symptoms worsen Follow-up/Referrals: Debra Gonzalez PA-C [Primary Care Provider] - Diet: Regular Addtl Attending Provider Instructions: SPECIAL CARE INSTRUCTIONS: 1. Follow through with your scheduled aftercare appointments. If unable to keep an appointment, please call to reschedule. 2. Take your medication only as prescribed. Medication should not be changed or stopped without the approval of your doctor. In the event of worsening symptoms or concerns about side effects, contact your doctor immediately. 3. Utilize new healthy coping skills, anger management skills, and stress management skills learned during your hospitalization. Journal feelings and process them with a support person. Identify stressors or situations that may result in relapse, deterioration or inappropriate behaviors and develop a plan to deal with those issues. 4. If your coping skills are ineffective and you are in crisis, contact your outpatient providers for direction. If unable to reach your providers, please call the [facility] CRISIS LINE AT , go to the [facility] walk-in center at [address], [address], [place], or go to the closest Emergency Room. 5. Avoid alcohol and un-prescribed drugs. 6. You have been provided with the Mental Health Advance Directives Pamphlet for your review. 7. Your condition is stable for discharge to outpatient level of care, but recovery is an ongoing process. Ifthoughts to harm yourself or others return, follow the safety plan developed during your stay. Planning for a safe return home includes securing weapons. Our treatment team recommends weaponsbe removed from the home until your outpatient provider reassesses your progress. In rare cases where the items themselvescannot be removed, guns and ammunitionshould be secured separatelyand keys stored by a reliable personoutside of the home. If you were admitted on an involuntary commitment, the police or other legal authorities may be involved in this process. AFTERCARE APPOINTMENTS: * Please call your insurance company prior to your scheduled appointment to confirm your aftercare providers are covered. Take your insurance information to your appointments. WHO TO CALL AND WHEN: Medical Emergencies: For questions or emergencies related to your hospital stay, please contact the Inpatient Behavioral Health Unit at [phone]. A proof tester is on-call 10/09 for the Behavioral Health Unit for eliceo rgencies At any time you feel your situation is an emergency, you may also call 911 immediately. Pending Studies at Discharge: Yes Studies:: [place] level in 10 days Stand-Alone Forms: My getbetter!, Smoking Cessation Medications and DC Order Prescriptions: New magnesium oxide 400 mg (241.3 mg magnesium) Tablet 400 mg PO HS Qty: 30 0RF hydroxyzine HCl 25 mg Tablet 25 mg PO Q4H 30 Days Qty: 30 0RF lithium carbonate 300 mg Tablet 300 mg PO HS@2200 Qty: 45 0RF escitalopram oxalate 10 mg Tablet 15 mg PO QAM 45 Days Qty: 45 0RF Continued valacyclovir [Valtrex] 500 mg tablet 500 mg PO DAILY Qty: 30 2RF levocetirizine 5 mg Tablet 5 mg PO HS alprazolam [Xanax] 0.25 mg tablet 0.25 mg PO DIRECTED PRN (Reason: Anxiety) Discontinued escitalopram oxalate 20 mg tablet 20 mg PO HS Discharge Orders: Discharge Order (Routine); Ordered 01/08/25 Ordered By: Lakeshia Villanueva/Other Patient Handouts: Journaling for Emotional Wellness, Treating Bipolar Disorder, Treating Affective (Mood) Disorders, Spotting Suicide Warning Signs Admission Data Admit Date/Time: 01/03/25 14:46 Attending Provider: Lakeshia Cooley Admit Provider: Lakeshia Cooley Primary Care Provider: Debra Gonzalez C[place] [address] D/C day mgmt 30 min or < Patient Type Established History Problem Focused Exam Problem Focused Medical Decision Making Low Complexity Diagnoses Suicidal ideation R45.851 Depression F32.A Depression Type: unspecified Bipolar 2 disorder F31.81 Time Spent (min) 30
[2025-01-08 06:25] VITALS: TEMP 98.5
[2025-01-08 09:21] VITALS: BP 118/81; PULSE 73
[2025-01-08 13:27] LABS: 7-Aminoclonaz, Confirm NEGATIVE ng/mL (<25); Hydro-Alp Ur, GC/MS 114 ng/mL (<25); Hydroxyethylflurazepam, Conf NEGATIVE ng/mL (<50); Hydroxymidazolam Ur, GC/MS NEGATIVE ng/mL (<50); Lorazepam, Ur GC/MS NEGATIVE ng/mL (<50); Nordiazepam, Confirm NEGATIVE ng/mL (<50); Oxazepam Ur, GC/MS NEGATIVE ng/mL (<50); Temazepam, Confirm NEGATIVE ng/mL (<50)
== END 2025-01-08 13:25 | disposition home or self-care (01) | DRG 885 ==
LOC: ED 09:58 → 3S 14:46